=== PATIENT | female | born 1965 | race Hispanic/Latino ===

== ENCOUNTER → 2019-03-24 | Outpatient (CLI) | payer OTHER | END | disposition home or self-care (01) | LOC: RAH 11:43 | PROVIDERS: ATTEND Family Medicine | DX: Z12.31 Encounter for screening mammogram for malignant neoplasm of breast (principal) | CPT/HCPCS: 77067 ==

== ENCOUNTER 2021-12-26 20:11 | Inpatient (IN) | payer OTHER ==
[~2021-12-26] VITALS: Ht 170.2 cm; Wt 170.8 kg
[2021-12-26 22:24] LABS: HEMATOCRIT 34.1 % (36-48); MEAN CORPUSCULAR HEMOGLOBIN 30.6 pg (27.0-33.0); MEAN CORPUSCULAR HGB CONC 33.4 g/dL (32.0-36.0); MEAN CORPUSCULAR VOLUME 91.7 fL (79-99); RED BLOOD CELL COUNT(AUTO) 3.72 MIL/uL (4.00-5.50); RED CELL DISTRIBUTION WIDTH 13.7 % (11.0-15.5); WHITE BLOOD COUNT (AUTO) 20.6 K/uL (4.8-10.8)
[2021-12-26 22:29] LABS: CREATININE 1.8 mg/dL (0.5-1.5); POTASSIUM 3.4 mmol/L (3.5-5.1)
[2021-12-26 22:34] LABS: ALBUMIN 2.4 g/dL (3.5-5.0); BILIRUBIN,TOTAL 0.8 mg/dL (0.2-1.0); TOTAL PROTEIN, SERUM 7.4 g/dL (6.0-8.3)
[2021-12-26] MEDS ORDERED: CLINDAMYCIN IVPB 900MG/50ML 50 ML IV ONE (23:00)
[2021-12-26] MEDS ORDERED: [UNRECOGNIZED DRUG - OTHER] IV ONE (23:00)
[2021-12-26] MEDS ORDERED: KETOROLAC 30MG VIAL (30MG/ML) IV ONE (23:00)
[2021-12-26] MEDS ORDERED: ACETAMINOPHEN 500 MG TABLET PO ONE (23:00)
[2021-12-26 23:04] LABS: BILIRUBIN,URINE Small (NEGATIVE); COLOR,URINE Dark Yellow (YELLOW); GLUCOSE, URINE (UA) Negative (NEGATIVE); KETONES,URINE Trace mg/dL (NEGATIVE); LEUKOCYTE ESTERASE ,URINE Trace (NEGATIVE); NITRATE,URINE Negative (NEGATIVE); OCCULT BLOOD,URINE Negative (NEGATIVE); PROTEIN,URINE POS 1+ mg/dL (NEGATIVE)
[2021-12-26 23:05] LABS: APPEARANCE,URINE CLOUDY (CLEAR)
[2021-12-26 23:13] LABS: BACTERIA,URINE Moderate /HPF (None Seen); RBC,URINE 0-1 /HPF (0-1)
[2021-12-26] MEDS ORDERED: IOHEXOL-350 50ML VIAL IV ONE (23:41)
[2021-12-27] MEDS ORDERED: KCL 20 MEQ ERTAB PO ONE ×2 (01:30→03:34)
[2021-12-27] MEDS ORDERED: VANCOMYCIN 1G/250ML KIT 250 ML IV ONE (01:30)
[2021-12-27] MEDS ORDERED: VANCOMYCIN 1G VIAL IVPB ONE (01:30)
[2021-12-27] MEDS ORDERED: ACETAMINOPHEN 325 MG TAB PO PRN ×2 (02:00)
[2021-12-27] MEDS ORDERED: NITROGLYCERIN 0.4 MG SL TAB SL PRN (02:00)
[2021-12-27] MEDS ORDERED: VANCOMYCIN PROTOCOL PER PHARMACY IV PRN (02:00)
[2021-12-27] MEDS ORDERED: DEXTROSE 50%-WATER 50 ML DISP.SYRIN IV PRN (02:00)
[2021-12-27] MEDS ORDERED: ONDANSETRON 4MG INJ IV PRN (02:00)
[2021-12-27] MEDS ORDERED: GLUCAGON 1MG KIT 1 MG ML IM PRN (02:00)
[2021-12-27] MEDS ORDERED: HYDROCODONE/ACETAMINOPHEN 5/325 MG TAB PO PRN ×2 (02:00)
[2021-12-27] MEDS: 0.9%NACL 1000ML 1,000 ML IV SCH ×3 (02:34→21:03)
[2021-12-27 02:51] LABS: HEMOGLOBIN A1C 7.9 % (4.0-6.0)
[2021-12-27] MEDS: METRONIDAZOLE 500MG/100ML BAG 100 ML IVPB SCH ×5 (03:30→22:25)
[2021-12-27 03:42] LABS: BASOPHILS % (AUTO) 0.9 % (0.0-5.0); HEMATOCRIT 35.5 % (36-48); LYMPHOCYTES % (AUTO) 5.3 % (21.0-51.0); MEAN CORPUSCULAR HEMOGLOBIN 30.4 pg (27.0-33.0); MEAN CORPUSCULAR HGB CONC 33.8 g/dL (32.0-36.0); MEAN CORPUSCULAR VOLUME 89.9 fL (79-99); MONOCYTES % (AUTO) 3.7 % (3.0-13.0); NEUTROPHILS % (AUTO) 87.6 % (40.0-77.0); PLATELET COUNT (AUTO) 248 K/uL (130-400); RED BLOOD CELL COUNT(AUTO) 3.95 MIL/uL (4.00-5.50); RED CELL DISTRIBUTION WIDTH 13.8 % (11.0-15.5); WHITE BLOOD COUNT (AUTO) 19.1 K/uL (4.8-10.8)
[2021-12-27] MEDS: LEVOFLOXACIN 500 MG/D5W 100 ML 100 ML IV SCH (03:43)
[2021-12-27 03:55] LABS: INR 1.16 (0.85-1.15); PROTHROMBIN TIME 12.5 SEC (9.6-11.6)
[2021-12-27 03:56] LABS: PARTIAL THROMBOPLASTIN TIME 31.1 SEC (26.3-35.5)
[2021-12-27 04:13] LABS: ALBUMIN 2.3 g/dL (3.5-5.0); BILIRUBIN,TOTAL 0.8 mg/dL (0.2-1.0); CREATININE 1.7 mg/dL (0.5-1.5); MAGNESIUM 1.7 mg/dL (1.80-2.40); POTASSIUM 3.8 mmol/L (3.5-5.1); THYROID STIMULATING HORMONE 2.8 uIU/mL (0.36-3.74); TOTAL PROTEIN, SERUM 7.3 g/dL (6.0-8.3)
[2021-12-27 05:06] LABS: ERYTHROCYTE SEDIMENTATION RATE 118 MM/HR (0-30)
[2021-12-27] MEDS: INSULIN HUMULIN R 100 UNIT/ML 3ML SQ SCH ×4 (07:30→21:00)
[2021-12-27] MEDS: FAMOTIDINE 20MG TAB PO SCH ×2 (09:00→21:03)
[2021-12-27 09:09] LABS: CREATININE,URINE RANDOM 303 mg/dL (30-135); SODIUM,URINE RANDOM < 14 mmol/l (40-220)
[2021-12-27 10:00] VITALS: BP 107/69
[2021-12-27] MEDS: HYDROMORPHONE 0.5 MG SYG (0.5MG/0.5ML) IVP PRN (10:23)
[2021-12-27] MEDS: HEPARIN 5,000 UNIT VIAL SQ SCH ×3 (10:23→21:24)
[2021-12-27] MEDS ORDERED: HYDROMORPHONE 1 MG INJ IVP PRN (12:30)
[2021-12-27] MEDS ORDERED: KETOROLAC 30MG VIAL (30MG/ML) IM PRN (12:30)
[2021-12-27 16:00] VITALS: BP 105/54
[2021-12-27] MEDS ORDERED: GABA-529 PO (16:44)
[2021-12-27] MEDS ORDERED: LEVO200T5 PO (16:44)
[2021-12-27 19:00] VITALS: BP 90/51
[2021-12-27] MEDS ORDERED: 0.9% NACL 250ML 250 ML ONE (20:57)
[2021-12-27] MEDS: VANCOMYCIN 1G/250ML KIT 250 ML IV SCH (21:03)
[2021-12-28] VITALS (25 sets, daily range): BP systolic 92–127; BP diastolic 52–74
[2021-12-28] MEDS: HYDROMORPHONE 0.5 MG SYG (0.5MG/0.5ML) IVP PRN (00:57)
[2021-12-28] MEDS: LEVOFLOXACIN 500 MG/D5W 100 ML 100 ML IV SCH (03:56)
[2021-12-28] MEDS: LEVOTHYROXINE 125 MCG TABLET PO SCH (03:57)
[2021-12-28] MEDS: INSULIN HUMULIN R 100 UNIT/ML 3ML SQ SCH ×4 (05:59→21:00)
[2021-12-28] MEDS: METRONIDAZOLE 500MG/100ML BAG 100 ML IVPB SCH (06:41)
[2021-12-28 07:00] LABS: BASOPHILS % (AUTO) 0.8 % (0.0-5.0); EOSINOPHILS % (AUTO) 0.7 % (0.0-8.0); HEMATOCRIT 29.7 % (36-48); LYMPHOCYTES % (AUTO) 6.3 % (21.0-51.0); MEAN CORPUSCULAR HEMOGLOBIN 30.5 pg (27.0-33.0); MEAN CORPUSCULAR HGB CONC 34.3 g/dL (32.0-36.0); MEAN CORPUSCULAR VOLUME 88.9 fL (79-99); MONOCYTES % (AUTO) 4.9 % (3.0-13.0); NEUTROPHILS % (AUTO) 81.5 % (40.0-77.0); PLATELET COUNT (AUTO) 283 K/uL (130-400); RED BLOOD CELL COUNT(AUTO) 3.34 MIL/uL (4.00-5.50); WHITE BLOOD COUNT (AUTO) 21.1 K/uL (4.8-10.8)
[2021-12-28 07:31] LABS: CREATININE 1.1 mg/dL (0.5-1.5); POTASSIUM 3.1 mmol/L (3.5-5.1)
[2021-12-28] MEDS ORDERED: POTASSIUM CHLORIDE 10MEQ/100ML 100 ML IV PRN (08:30)
[2021-12-28] MEDS ORDERED: CEFEPIME HCL 2 GM VIAL IVP SCH ×2 (08:30→16:30)
[2021-12-28] MEDS ORDERED: LIDOCAINE HCL-MPF 1% 2ML VIAL IV PRN (08:30)
[2021-12-28] MEDS: HEPARIN 5,000 UNIT VIAL SQ SCH ×3 (08:50→20:07)
[2021-12-28] MEDS: FAMOTIDINE 20MG TAB PO SCH (09:00)
[2021-12-28] MEDS: VANCOMYCIN 1G/250ML KIT 250 ML IV SCH ×2 (09:18→20:04)
[2021-12-28] MEDS ORDERED: CEFAZOLIN SODIUM 1 GM VIAL ONE (09:27)
[2021-12-28] MEDS ORDERED: VANCOMYCIN 1G VIAL ONE (09:41)
[2021-12-28] MEDS ORDERED: ROCURONIUM 10MG/1ML SYR 10 MG/ML ML ONE (09:47)
[2021-12-28] MEDS ORDERED: ONDANSETRON 4MG INJ ONE (09:47)
[2021-12-28] MEDS ORDERED: MIDAZOLAM HCL 1 MG/ML 2ML VIAL ONE (09:47)
[2021-12-28] MEDS ORDERED: FENTANYL CITRATE PF 50 MCG/1 ML 2ML VIAL ONE (09:47)
[2021-12-28] MEDS ORDERED: PROPOFOL 10 MG/ML 20ML VIAL IV ONE ×2 (09:48→10:34)
[2021-12-28] MEDS ORDERED: LIDOCAINE 1%-EPI 1:100,000 20 ML VIAL IJ ONE (10:17)
[2021-12-28] MEDS ORDERED: LIDOCAINE HCL 1% 20 ML VIAL ONE (10:17)
[2021-12-28] MEDS ORDERED: BUPIVACAINE/PF 0.5% 30ML VIAL ONE (10:17)
[2021-12-28] MEDS ORDERED: FENTANYL CITRATE PF 50 MCG/1 ML 5ML AMP IV ONE (10:23)
[2021-12-28] MEDS ORDERED: VANCOMYCIN 1G VIAL IRRIG ONE (10:53)
[2021-12-28 11:00] LABS: ABG BASE EXCESS -8.1 mmol/L (-2.0-3.0); ABG HCO3 15.6 mmol/L (21.0-28.0); ABG OXYGEN SATURATION 99.4 % (95.0-99.0); ABG PCO2 27 mmHg (32-45)
[2021-12-28] MEDS: 0.9%NACL 1000ML 1,000 ML IV SCH ×3 (11:23→19:37)
[2021-12-28] MEDS ORDERED: KETOROLAC 30MG VIAL (30MG/ML) ONE (11:30)
[2021-12-28] MEDS: CEFEPIME HCL 2 GM VIAL IVP SCH (20:04)
[2021-12-28] MEDS ORDERED: POTASSIUM CHLORIDE 10% ELIXIR 20 MEQ/15 ML UDCUP PO PRN (22:30)
[2021-12-29] VITALS: BP 102/48
[2021-12-29] MEDS: KCL 20 MEQ ERTAB PO PRN ×3 (00:11→05:49)
[2021-12-29 04:00] VITALS: BP 98/50
[2021-12-29] MEDS: 0.9%NACL 1000ML 1,000 ML IV SCH ×3 (04:00→23:57)
[2021-12-29 05:17] LABS: BASOPHILS % (AUTO) 0.2 % (0.0-5.0); EOSINOPHILS % (AUTO) 1.8 % (0.0-8.0); HEMATOCRIT 29.1 % (36-48); LYMPHOCYTES % (AUTO) 9.2 % (21.0-51.0); MEAN CORPUSCULAR HEMOGLOBIN 30.2 pg (27.0-33.0); MEAN CORPUSCULAR HGB CONC 33.7 g/dL (32.0-36.0); MEAN CORPUSCULAR VOLUME 89.5 fL (79-99); MONOCYTES % (AUTO) 5.4 % (3.0-13.0); NEUTROPHILS % (AUTO) 68.9 % (40.0-77.0); PLATELET COUNT (AUTO) 283 K/uL (130-400); RED BLOOD CELL COUNT(AUTO) 3.25 MIL/uL (4.00-5.50); RED CELL DISTRIBUTION WIDTH 14.6 % (11.0-15.5); WHITE BLOOD COUNT (AUTO) 18.2 K/uL (4.8-10.8)
[2021-12-29 05:30] LABS: PHOSPHORUS 3.6 mg/dL (2.5-4.9); POTASSIUM 3.4 mmol/L (3.5-5.1)
[2021-12-29] MEDS: CEFEPIME HCL 2 GM VIAL IVP SCH ×2 (05:49→20:12)
[2021-12-29] MEDS: LEVOTHYROXINE 125 MCG TABLET PO SCH (05:49)
[2021-12-29] MEDS: INSULIN HUMULIN R 100 UNIT/ML 3ML SQ SCH ×4 (05:52→20:23)
[2021-12-29 08:00] VITALS: BP 96/58
[2021-12-29] MEDS: HEPARIN 5,000 UNIT VIAL SQ SCH ×3 (09:00→20:14)
[2021-12-29] MEDS: VANCOMYCIN 1G/250ML KIT 250 ML IV SCH ×2 (10:36→20:13)
[2021-12-29] MEDS: FAMOTIDINE 20MG TAB PO SCH (10:37)
[2021-12-29 12:00] VITALS: BP 99/58
[2021-12-29 16:00] VITALS: BP 105/58
[2021-12-29 20:00] VITALS: BP 115/65
[2021-12-30] VITALS: BP 109/64
[2021-12-30 04:00] VITALS: BP 97/64
[2021-12-30] MEDS: LEVOTHYROXINE 125 MCG TABLET PO SCH (06:07)
[2021-12-30] MEDS: CEFEPIME HCL 2 GM VIAL IVP SCH ×2 (06:07→18:30)
[2021-12-30] MEDS: 0.9%NACL 1000ML 1,000 ML IV SCH ×2 (06:07→21:16)
[2021-12-30] MEDS: INSULIN HUMULIN R 100 UNIT/ML 3ML SQ SCH ×4 (06:36→21:00)
[2021-12-30 08:00] VITALS: BP 122/67
[2021-12-30] MEDS: VANCOMYCIN 1G/250ML KIT 250 ML IV SCH ×2 (08:31→21:15)
[2021-12-30] MEDS: FAMOTIDINE 20MG TAB PO SCH (08:32)
[2021-12-30] MEDS: HEPARIN 5,000 UNIT VIAL SQ SCH ×3 (08:33→21:35)
[2021-12-30 12:00] VITALS: BP 105/71
[2021-12-30 16:00] VITALS: BP 94/60
[2021-12-30 20:00] VITALS: BP 132/82
[2021-12-31] VITALS (7 sets, daily range): BP systolic 115–136; BP diastolic 68–82
[2021-12-31] MEDS: 0.9%NACL 1000ML 1,000 ML IV SCH ×2 (05:19→16:00)
[2021-12-31] MEDS: CEFEPIME HCL 2 GM VIAL IVP SCH ×2 (05:43→17:54)
[2021-12-31] MEDS: LEVOTHYROXINE 125 MCG TABLET PO SCH (05:44)
[2021-12-31] MEDS: INSULIN HUMULIN R 100 UNIT/ML 3ML SQ SCH ×4 (07:30→21:00)
[2021-12-31] MEDS: VANCOMYCIN 1G/250ML KIT 250 ML IV SCH ×2 (08:24→20:59)
[2021-12-31] MEDS: FAMOTIDINE 20MG TAB PO SCH (08:24)
[2021-12-31] MEDS: HEPARIN 5,000 UNIT VIAL SQ SCH ×3 (08:29→20:57)
[2021-12-31 08:38] LABS: BASOPHILS % (AUTO) 0.2 % (0.0-5.0); EOSINOPHILS % (AUTO) 1.6 % (0.0-8.0); HEMATOCRIT 32.5 % (36-48); LYMPHOCYTES % (AUTO) 14.7 % (21.0-51.0); MEAN CORPUSCULAR HEMOGLOBIN 30.2 pg (27.0-33.0); MEAN CORPUSCULAR HGB CONC 32.6 g/dL (32.0-36.0); MEAN CORPUSCULAR VOLUME 92.6 fL (79-99); MONOCYTES % (AUTO) 4.6 % (3.0-13.0); NEUTROPHILS % (AUTO) 46.2 % (40.0-77.0); PLATELET COUNT (AUTO) 381 K/uL (130-400); RED BLOOD CELL COUNT(AUTO) 3.51 MIL/uL (4.00-5.50); RED CELL DISTRIBUTION WIDTH 15.9 % (11.0-15.5); WHITE BLOOD COUNT (AUTO) 15.9 K/uL (4.8-10.8)
[2021-12-31 09:14] LABS: BILIRUBIN,TOTAL 0.5 mg/dL (0.2-1.0); CREATININE 0.9 mg/dL (0.5-1.5); POTASSIUM 3.7 mmol/L (3.5-5.1); TOTAL PROTEIN, SERUM 6.8 g/dL (6.0-8.3)
[2021-12-31] MEDS ORDERED: METR-172 PO (18:08)
[2021-12-31] MEDS ORDERED: ACET1TAB25 PO (18:08)
[2021-12-31] MEDS ORDERED: CEFU500T67 PO (18:08)
[2022-01-01] MEDS: 0.9%NACL 1000ML 1,000 ML IV SCH ×3 (02:00→22:00)
[2022-01-01 05:06] LABS: HEMATOCRIT 28.8 % (36-48); MEAN CORPUSCULAR HEMOGLOBIN 30.9 pg (27.0-33.0); MEAN CORPUSCULAR HGB CONC 32.6 g/dL (32.0-36.0); MEAN CORPUSCULAR VOLUME 94.7 fL (79-99); NUCLEATED RED BLOOD CELLS 0.1 % (0.0-0.19); RED BLOOD CELL COUNT(AUTO) 3.04 MIL/uL (4.00-5.50); RED CELL DISTRIBUTION WIDTH 15.9 % (11.0-15.5); WHITE BLOOD COUNT (AUTO) 14.7 K/uL (4.8-10.8)
[2022-01-01 05:11] VITALS: BP 129/79
[2022-01-01 05:16] LABS: CREATININE 0.7 mg/dL (0.5-1.5); POTASSIUM 3.6 mmol/L (3.5-5.1)
[2022-01-01] MEDS: CEFEPIME HCL 2 GM VIAL IVP SCH ×2 (06:10→17:50)
[2022-01-01] MEDS: LEVOTHYROXINE 125 MCG TABLET PO SCH (06:20)
[2022-01-01] MEDS: INSULIN HUMULIN R 100 UNIT/ML 3ML SQ SCH ×4 (06:29→21:00)
[2022-01-01 07:30] VITALS: BP 145/87
[2022-01-01] MEDS ORDERED: 0.9% NACL 250ML 250 ML ONE ×2 (09:03→20:08)
[2022-01-01] MEDS: HEPARIN 5,000 UNIT VIAL SQ SCH ×3 (09:09→20:38)
[2022-01-01] MEDS: FAMOTIDINE 20MG TAB PO SCH (09:11)
[2022-01-01] MEDS: VANCOMYCIN 1G/250ML KIT 250 ML IV SCH ×2 (09:14→20:39)
[2022-01-01 11:30] VITALS: BP 130/78
[2022-01-01 16:00] VITALS: BP 116/77
[2022-01-01 19:57] VITALS: BP 120/81
[2022-01-01] MEDS: KCL 20 MEQ ERTAB PO PRN (20:50)
[2022-01-01 23:28] VITALS: BP 121/71
[2022-01-02] VITALS (22 sets, daily range): BP systolic 72–138; BP diastolic 36–87
[2022-01-02] MEDS: LEVOTHYROXINE 125 MCG TABLET PO SCH (05:12)
[2022-01-02] MEDS: CEFEPIME HCL 2 GM VIAL IVP SCH (05:12)
[2022-01-02 05:24] LABS: BASOPHILS % (AUTO) 0.9 % (0.0-5.0); EOSINOPHILS % (AUTO) 1.9 % (0.0-8.0); HEMATOCRIT 28.4 % (36-48); LYMPHOCYTES % (AUTO) 17.8 % (21.0-51.0); MEAN CORPUSCULAR HEMOGLOBIN 30.3 pg (27.0-33.0); MEAN CORPUSCULAR HGB CONC 32.7 g/dL (32.0-36.0); MEAN CORPUSCULAR VOLUME 92.5 fL (79-99); MONOCYTES % (AUTO) 6.4 % (3.0-13.0); NEUTROPHILS % (AUTO) 46.2 % (40.0-77.0); PLATELET COUNT (AUTO) 423 K/uL (130-400); RED BLOOD CELL COUNT(AUTO) 3.07 MIL/uL (4.00-5.50); RED CELL DISTRIBUTION WIDTH 15.6 % (11.0-15.5); WHITE BLOOD COUNT (AUTO) 13.1 K/uL (4.8-10.8)
[2022-01-02 05:47] LABS: % IRON SATURATION 52.7 % (22-44)
[2022-01-02 06:15] LABS: CARBON DIOXIDE 24 mmol/L (21-32); CHLORIDE 109 mmol/L (101-111); CREATININE 0.7 mg/dL (0.5-1.5); GLOMERULAR FILTR. RATE CALC 91 mL/min (>60); GLUCOSE,RANDOM 129 mg/dL (70-105); POTASSIUM 3.5 mmol/L (3.5-5.1); SODIUM SERUM 142 mmol/L (136-145); THYROID STIMULATING HORMONE 10.11 uIU/mL (0.36-3.74); UREA NITROGEN, BLOOD 9 mg/dL (7-18)
[2022-01-02 06:27] LABS: ERYTHROCYTE SEDIMENTATION RATE 75 MM/HR (0-30)
[2022-01-02] MEDS: INSULIN HUMULIN R 100 UNIT/ML 3ML SQ SCH ×3 (06:34→21:00)
[2022-01-02] MEDS: FAMOTIDINE 20MG TAB PO SCH (09:00)
[2022-01-02] MEDS: ENOXAPARIN SODIUM 40 MG/0.4 ML SYRINGE SQ SCH (09:00)
[2022-01-02] MEDS ORDERED: 0.9% NACL 250ML 250 ML ONE (09:12)
[2022-01-02] MEDS: VANCOMYCIN 1G/250ML KIT 250 ML IV SCH (09:16)
[2022-01-02] MEDS: METRONIDAZOLE 500 MG TABLET PO SCH ×2 (14:26→21:52)
[2022-01-02] MEDS: CEFUROXIME AXETIL 250 MG TABLET PO SCH (14:26)
[2022-01-02] MEDS ORDERED: SUCCINYLCHOLINE CHLORIDE 20 MG/ML 10 ML VIAL ONE (17:09)
[2022-01-02] MEDS ORDERED: MIDAZOLAM HCL 1 MG/ML 2ML VIAL ONE (17:09)
[2022-01-02] MEDS ORDERED: ROCURONIUM 10MG/1ML SYR 10 MG/ML ML ONE (17:09)
[2022-01-02] MEDS ORDERED: FENTANYL CITRATE PF 50 MCG/1 ML 2ML VIAL ONE ×2 (17:09→17:37)
[2022-01-02] MEDS ORDERED: PROPOFOL 10 MG/ML 20ML VIAL IV ONE ×2 (17:09→17:37)
[2022-01-02] MEDS ORDERED: LIDOCAINE PF 100MG/5ML (2%) SYRINGE 5ML ONE (17:09)
[2022-01-02] MEDS ORDERED: MEPERIDINE-PF 25 MG/ML SYG ONE (18:39)
[2022-01-03] VITALS: BP 110/70
[2022-01-03 04:00] VITALS: BP 122/72
[2022-01-03 04:28] LABS: BASOPHILS % (AUTO) 0.1 % (0.0-5.0); EOSINOPHILS % (AUTO) 1.7 % (0.0-8.0); HEMATOCRIT 27.3 % (36-48); LYMPHOCYTES % (AUTO) 15.4 % (21.0-51.0); MEAN CORPUSCULAR HEMOGLOBIN 30.9 pg (27.0-33.0); MEAN CORPUSCULAR VOLUME 93.8 fL (79-99); MONOCYTES % (AUTO) 6.2 % (3.0-13.0); NEUTROPHILS % (AUTO) 60.5 % (40.0-77.0); PLATELET COUNT (AUTO) 399 K/uL (130-400); RED BLOOD CELL COUNT(AUTO) 2.91 MIL/uL (4.00-5.50); RED CELL DISTRIBUTION WIDTH 15.2 % (11.0-15.5); WHITE BLOOD COUNT (AUTO) 11.8 K/uL (4.8-10.8)
[2022-01-03 04:43] LABS: CREATININE 0.7 mg/dL (0.5-1.5); POTASSIUM 3.4 mmol/L (3.5-5.1)
[2022-01-03] MEDS: METRONIDAZOLE 500 MG TABLET PO SCH ×2 (06:01→14:24)
[2022-01-03] MEDS: CEFUROXIME AXETIL 250 MG TABLET PO SCH ×2 (06:02→14:24)
[2022-01-03] MEDS: LEVOTHYROXINE 125 MCG TABLET PO SCH (06:02)
[2022-01-03] MEDS: INSULIN HUMULIN R 100 UNIT/ML 3ML SQ SCH ×4 (06:02→21:00)
[2022-01-03 08:00] VITALS: BP 131/67
[2022-01-03] MEDS: FAMOTIDINE 20MG TAB PO SCH (08:43)
[2022-01-03] MEDS: ENOXAPARIN SODIUM 40 MG/0.4 ML SYRINGE SQ SCH (08:44)
[2022-01-03 12:00] VITALS: BP 148/75
[2022-01-03] MEDS: HYDROMORPHONE 1 MG INJ IVP PRN (14:25)
[2022-01-03 16:00] VITALS: BP 119/72
[2022-01-03 20:00] VITALS: BP 123/73
[2022-01-04] VITALS: BP 124/75
[2022-01-04] MEDS: METRONIDAZOLE 500 MG TABLET PO SCH ×2 (00:44→05:51)
[2022-01-04 04:00] VITALS: BP 119/67
[2022-01-04 05:19] LABS: BASOPHILS % (AUTO) 0.4 % (0.0-5.0); EOSINOPHILS % (AUTO) 2.1 % (0.0-8.0); HEMATOCRIT 26.5 % (36-48); LYMPHOCYTES % (AUTO) 18.8 % (21.0-51.0); MEAN CORPUSCULAR HEMOGLOBIN 30.3 pg (27.0-33.0); MEAN CORPUSCULAR HGB CONC 32.8 g/dL (32.0-36.0); MEAN CORPUSCULAR VOLUME 92.3 fL (79-99); MONOCYTES % (AUTO) 5.5 % (3.0-13.0); NEUTROPHILS % (AUTO) 61.8 % (40.0-77.0); PLATELET COUNT (AUTO) 394 K/uL (130-400); RED BLOOD CELL COUNT(AUTO) 2.87 MIL/uL (4.00-5.50); WHITE BLOOD COUNT (AUTO) 11.2 K/uL (4.8-10.8)
[2022-01-04 05:50] LABS: CREATININE 0.8 mg/dL (0.5-1.5); POTASSIUM 3.1 mmol/L (3.5-5.1)
[2022-01-04] MEDS: CEFUROXIME AXETIL 250 MG TABLET PO SCH (05:51)
[2022-01-04] MEDS: LEVOTHYROXINE 125 MCG TABLET PO SCH (05:53)
[2022-01-04] MEDS: INSULIN HUMULIN R 100 UNIT/ML 3ML SQ SCH ×3 (05:53→16:30)
[2022-01-04 07:35] VITALS: BP 123/74
[2022-01-04] MEDS: FAMOTIDINE 20MG TAB PO SCH (08:50)
[2022-01-04] MEDS: ENOXAPARIN SODIUM 40 MG/0.4 ML SYRINGE SQ SCH (08:51)
[2022-01-04] MEDS ORDERED: EPOETIN ALFA-EPBX (NON-ESRD) 10,000 UNIT/ML VIAL SQ SCH (09:30)
[2022-01-04] MEDS ORDERED: COMPOUND IV MISC 1 EACH IVSOLN MISC PRN (09:30)
[2022-01-04] MEDS ORDERED: IRON SUCROSE COMPLEX 400 MG in 0.9%NACL 50ML 50 ML IV SCH (09:30)
[2022-01-04] MEDS ORDERED: CEFTAZIDIME PENTAHYDRATE 1 GM/VIAL IVP SCH (10:00)
[2022-01-04 11:36] LABS: INR 1.06 (0.85-1.15); PROTHROMBIN TIME 11.5 SEC (9.6-11.6)
[2022-01-04 11:40] VITALS: BP 116/69
[2022-01-04] MEDS: HYDROMORPHONE 1 MG INJ IVP PRN (13:23)
[2022-01-04] MEDS ORDERED: METRONIDAZOLE 500MG/100ML BAG 100 ML IVPB SCH (14:00)
[2022-01-04 15:40] VITALS: BP 119/65
== END 2022-01-04 17:25 | DRG 584 ==
LOC: EDH 20:11 → EDHIP 12-27 01:32 → 3BH 12-27 10:00
PROVIDERS: ADMIT Internal Medicine; ATTEND Internal Medicine
PROC: 0X940ZZ Drainage of Right Axilla, Open Approach (ICD-10-PCS; 2021-12-28)
PROC: 0H9T0ZZ Drainage of Right Breast, Open Approach (ICD-10-PCS; principal; 2021-12-28 10:35)
PROC: 0H9T0ZZ Drainage of Right Breast, Open Approach (ICD-10-PCS; 2022-01-02)
DX: L02.213 Cutaneous abscess of chest wall (principal); L02.411 Cutaneous abscess of right axilla; E87.1 Hypo-osmolality and hyponatremia; Z68.43 Body mass index [BMI] 50.0-59.9, adult; N17.9 Acute kidney failure, unspecified; L03.111 Cellulitis of right axilla; L03.313 Cellulitis of chest wall; E87.6 Hypokalemia; E66.01 Morbid (severe) obesity due to excess calories; E11.65 Type 2 diabetes mellitus with hyperglycemia; N61.1 Abscess of the breast and nipple; E78.5 Hyperlipidemia, unspecified; M47.815 Spondylosis without myelopathy or radiculopathy, thoracolumbar region; Z20.822 Contact with and (suspected) exposure to COVID-19; Z88.0 Allergy status to penicillin; Z90.49 Acquired absence of other specified parts of digestive tract; Z90.710 Acquired absence of both cervix and uterus; Z83.3 Family history of diabetes mellitus; I25.10 Atherosclerotic heart disease of native coronary artery without angina pectoris; E89.0 Postprocedural hypothyroidism; D63.8 Anemia in other chronic diseases classified elsewhere; I10 Essential (primary) hypertension
CPT/HCPCS: 36415; 36600; 71260; 76604; 80048; 80053; 80202; 81001; 81025; 82010; 82435; 82550; 82570; 82607; 82728; 82746; 82803; 82947; 82948; 83036; 83540; 83550; 83605; 83735; 83874; 83935; 84100; 84132; 84145; 84295; 84300; 84443; 84484; 85018; 85025; 85027; 85045; 85610; 85651; 85730; 86140; 87040; 87070; 87076; 87088; 87205; 87635; 93005; A6266; C1894; G0378; J0330; J0690; J0692; J1170; J1644; J1650; J1756; J1885; J1956; J2001; J2175; J2250; J2405; J2704; J3010; J3370; J3490; J7030; J7050; Q9967

== ENCOUNTER → 2022-01-28 | Outpatient (CLI) | payer OTHER ==
[~2022-01-28] MED LIST: ACET-2079 PO; CEFU500T67 PO; GABA-529 PO; LEVO200T5 PO; LIDOCAINE HCL 4% LTA SOL 4 ML VIAL TP ONE; METR-172 PO
== END ==
LOC: WHH 08:54
PROVIDERS: ATTEND Family Medicine
DX: T81.89XA Other complications of procedures, not elsewhere classified, initial encounter (principal); S21.90XA Unspecified open wound of unspecified part of thorax, initial encounter; E11.628 Type 2 diabetes mellitus with other skin complications; E11.65 Type 2 diabetes mellitus with hyperglycemia; I10 Essential (primary) hypertension; E78.5 Hyperlipidemia, unspecified; E03.9 Hypothyroidism, unspecified; I25.10 Atherosclerotic heart disease of native coronary artery without angina pectoris; E66.01 Morbid (severe) obesity due to excess calories; M47.815 Spondylosis without myelopathy or radiculopathy, thoracolumbar region; Z68.43 Body mass index [BMI] 50.0-59.9, adult; Z79.899 Other long term (current) drug therapy; Z88.0 Allergy status to penicillin; Z90.49 Acquired absence of other specified parts of digestive tract; Z90.710 Acquired absence of both cervix and uterus; Z98.890 Other specified postprocedural states; X58.XXXA Exposure to other specified factors, initial encounter; Y83.8 Other surgical procedures as the cause of abnormal reaction of the patient, or of later complication, without mention of misadventure at the time of the procedure; Y92.238 Other place in hospital as the place of occurrence of the external cause; Y93.89 Activity, other specified; Y92.89 Other specified places as the place of occurrence of the external cause; Y99.8 Other external cause status
CPT/HCPCS: 11042; 11045; A4450; A6248

== ENCOUNTER → 2022-02-04 | Outpatient (CLI) | payer OTHER ==
[~2022-02-04] MED LIST changes: +SILVER NITRATE APPLICATOR 1 SWAB TP ONE
== END | disposition home or self-care (01) ==
LOC: WHH 10:03
PROVIDERS: ATTEND Family Medicine
DX: T81.89XD Other complications of procedures, not elsewhere classified, subsequent encounter (principal); S21.90XD Unspecified open wound of unspecified part of thorax, subsequent encounter; E11.628 Type 2 diabetes mellitus with other skin complications; E11.65 Type 2 diabetes mellitus with hyperglycemia; I10 Essential (primary) hypertension; E78.5 Hyperlipidemia, unspecified; E03.9 Hypothyroidism, unspecified; I25.10 Atherosclerotic heart disease of native coronary artery without angina pectoris; E66.01 Morbid (severe) obesity due to excess calories; M47.815 Spondylosis without myelopathy or radiculopathy, thoracolumbar region; Z68.43 Body mass index [BMI] 50.0-59.9, adult; Z79.899 Other long term (current) drug therapy; Z88.0 Allergy status to penicillin; Z90.49 Acquired absence of other specified parts of digestive tract; Z90.710 Acquired absence of both cervix and uterus; Z98.890 Other specified postprocedural states; X58.XXXD Exposure to other specified factors, subsequent encounter; Y83.8 Other surgical procedures as the cause of abnormal reaction of the patient, or of later complication, without mention of misadventure at the time of the procedure
CPT/HCPCS: 11042; A6248

== ENCOUNTER → 2022-02-11 | Outpatient (CLI) | payer OTHER ==
[~2022-02-11] MED LIST changes: -SILVER NITRATE APPLICATOR 1 SWAB TP ONE
== END | disposition home or self-care (01) ==
LOC: WHH 09:59
PROVIDERS: ATTEND Family Medicine
DX: T81.89XD Other complications of procedures, not elsewhere classified, subsequent encounter (principal); S21.90XD Unspecified open wound of unspecified part of thorax, subsequent encounter; E11.628 Type 2 diabetes mellitus with other skin complications; E11.65 Type 2 diabetes mellitus with hyperglycemia; I10 Essential (primary) hypertension; E78.5 Hyperlipidemia, unspecified; E03.9 Hypothyroidism, unspecified; I25.10 Atherosclerotic heart disease of native coronary artery without angina pectoris; E66.01 Morbid (severe) obesity due to excess calories; M47.815 Spondylosis without myelopathy or radiculopathy, thoracolumbar region; Z68.43 Body mass index [BMI] 50.0-59.9, adult; Z79.899 Other long term (current) drug therapy; Z88.0 Allergy status to penicillin; Z90.49 Acquired absence of other specified parts of digestive tract; Z90.710 Acquired absence of both cervix and uterus; Z98.890 Other specified postprocedural states; X58.XXXD Exposure to other specified factors, subsequent encounter; Y83.8 Other surgical procedures as the cause of abnormal reaction of the patient, or of later complication, without mention of misadventure at the time of the procedure
CPT/HCPCS: 11042

== ENCOUNTER → 2022-02-18 | Outpatient (CLI) | payer OTHER | END | disposition home or self-care (01) | LOC: WHH 09:53 | PROVIDERS: ATTEND Family Medicine | DX: T81.89XD Other complications of procedures, not elsewhere classified, subsequent encounter (principal); S21.90XD Unspecified open wound of unspecified part of thorax, subsequent encounter; E11.628 Type 2 diabetes mellitus with other skin complications; I10 Essential (primary) hypertension; E78.5 Hyperlipidemia, unspecified; E03.9 Hypothyroidism, unspecified; I25.10 Atherosclerotic heart disease of native coronary artery without angina pectoris; E66.01 Morbid (severe) obesity due to excess calories; M47.815 Spondylosis without myelopathy or radiculopathy, thoracolumbar region; Z68.43 Body mass index [BMI] 50.0-59.9, adult; Z79.899 Other long term (current) drug therapy; Z98.890 Other specified postprocedural states; X58.XXXD Exposure to other specified factors, subsequent encounter; Y83.8 Other surgical procedures as the cause of abnormal reaction of the patient, or of later complication, without mention of misadventure at the time of the procedure | CPT/HCPCS: 99214 ==

== ENCOUNTER 2022-02-25 10:24 | Outpatient (CLI) | payer OTHER ==
[~2022-02-25 10:24] MED LIST changes: -LIDOCAINE HCL 4% LTA SOL 4 ML VIAL TP ONE
== END 2022-02-25 14:01 | disposition home or self-care (01) ==
LOC: WHH 10:24
PROVIDERS: ATTEND Family Medicine
DX: T81.89XD Other complications of procedures, not elsewhere classified, subsequent encounter (principal); S21.90XD Unspecified open wound of unspecified part of thorax, subsequent encounter; E11.628 Type 2 diabetes mellitus with other skin complications; I10 Essential (primary) hypertension; E78.5 Hyperlipidemia, unspecified; E03.9 Hypothyroidism, unspecified; I25.10 Atherosclerotic heart disease of native coronary artery without angina pectoris; E66.01 Morbid (severe) obesity due to excess calories; M47.815 Spondylosis without myelopathy or radiculopathy, thoracolumbar region; Z68.43 Body mass index [BMI] 50.0-59.9, adult; Z79.899 Other long term (current) drug therapy; Z98.890 Other specified postprocedural states; X58.XXXD Exposure to other specified factors, subsequent encounter; Y83.8 Other surgical procedures as the cause of abnormal reaction of the patient, or of later complication, without mention of misadventure at the time of the procedure
CPT/HCPCS: 99214

== ENCOUNTER 2022-02-27 12:23 | Inpatient (IN) | payer OTHER ==
[~2022-02-27] VITALS: Ht 170.2 cm; Wt 158.3 kg
[2022-02-27 12:55] LABS: ABG BASE EXCESS -7.2 mmol/L (-2.0-3.0); ABG OXYGEN SATURATION 91.4 % (95.0-99.0); ABG PCO2 27 mmHg (32-45)
[2022-02-27 13:11] LABS: HEMATOCRIT 39.5 % (36-48); MEAN CORPUSCULAR HEMOGLOBIN 30.8 pg (27.0-33.0); MEAN CORPUSCULAR HGB CONC 34.7 g/dL (32.0-36.0); MEAN CORPUSCULAR VOLUME 88.8 fL (79-99); RED BLOOD CELL COUNT(AUTO) 4.45 MIL/uL (4.00-5.50); RED CELL DISTRIBUTION WIDTH 14.6 % (11.0-15.5); WHITE BLOOD COUNT (AUTO) 27.2 K/uL (4.8-10.8)
[2022-02-27 13:36] LABS: CREATININE 1.9 mg/dL (0.5-1.5); POTASSIUM 3.8 mmol/L (3.5-5.1)
[2022-02-27] MEDS: LEVOFLOXACIN 500 MG/D5W 100 ML 100 ML IV SCH ×2 (14:10→14:11)
[2022-02-27 14:20] LABS: ALBUMIN 2.2 g/dL (3.5-5.0); BILIRUBIN,TOTAL 0.9 mg/dL (0.2-1.0); TOTAL PROTEIN, SERUM 7.3 g/dL (6.0-8.3)
[2022-02-27] MEDS ORDERED: 0.9%NACL 1000ML 1,000 ML IV ONE (15:23)
[2022-02-27] MEDS ORDERED: ENOXAPARIN SODIUM 1 MG/KG SQ SCH (15:30)
[2022-02-27] MEDS ORDERED: ASPIRIN 81MG CHEW TAB PO ONE (15:30)
[2022-02-27] MEDS ORDERED: METRONIDAZOLE 500MG/100ML BAG 100 ML IVPB STA (15:38)
[2022-02-27] MEDS ORDERED: ENOXAPARIN SODIUM 120 MG/0.8ML SQ SCH (17:00)
[2022-02-27 18:41] LABS: APPEARANCE,URINE CLOUDY (CLEAR); BILIRUBIN,URINE MODERATE (NEGATIVE); COLOR,URINE YELLOW (YELLOW); GLUCOSE, URINE (UA) NEGATIVE (NEGATIVE); KETONES,URINE NEGATIVE (NEGATIVE); LEUKOCYTE ESTERASE ,URINE TRACE (NEGATIVE); NITRATE,URINE NEGATIVE (NEGATIVE); OCCULT BLOOD,URINE NEGATIVE (NEGATIVE); PROTEIN,URINE 30 mg/dL (NEGATIVE)
[2022-02-27 19:33] LABS: BACTERIA,URINE Moderate /HPF (None Seen)
[2022-02-27 19:34] LABS: RBC,URINE 0-1 /HPF (0-1)
[2022-02-27] MEDS ORDERED: HYDROMORPHONE 0.5 MG SYG (0.5MG/0.5ML) IVP PRN (20:00)
[2022-02-27] MEDS: 0.9%NACL 1000ML 1,000 ML IV SCH (20:00)
[2022-02-27] MEDS ORDERED: ONDANSETRON 4MG INJ IV PRN (20:00)
[2022-02-27 20:09] LABS: BASOPHILS % (AUTO) 0.4 % (0.0-5.0); EOSINOPHILS % (AUTO) 0.2 % (0.0-8.0); HEMATOCRIT 36.5 % (36-48); LYMPHOCYTES % (AUTO) 5.1 % (21.0-51.0); MEAN CORPUSCULAR HEMOGLOBIN 30.2 pg (27.0-33.0); MONOCYTES % (AUTO) 4.5 % (3.0-13.0); NEUTROPHILS % (AUTO) 86.3 % (40.0-77.0); PLATELET COUNT (AUTO) 253 K/uL (130-400); RED CELL DISTRIBUTION WIDTH 14.6 % (11.0-15.5); WHITE BLOOD COUNT (AUTO) 22.6 K/uL (4.8-10.8)
[2022-02-27 20:18] LABS: CREATININE 1.8 mg/dL (0.5-1.5); POTASSIUM 3.6 mmol/L (3.5-5.1)
[2022-02-27 20:24] LABS: CHOLESTEROL 199 mg/dL (<200); HDL CHOLESTEROL 11 mg/dL (35-85); LDL DIRECT 115 mg/dL (0-99); TRIGLYCERIDES 294 mg/dL (30-200)
[2022-02-27 20:27] LABS: BILIRUBIN,TOTAL 0.6 mg/dL (0.2-1.0); TOTAL PROTEIN, SERUM 6.6 g/dL (6.0-8.3)
[2022-02-27 20:32] LABS: MAGNESIUM 1.7 mg/dL (1.80-2.40); PHOSPHORUS 3.6 mg/dL (2.5-4.9)
[2022-02-27] MEDS ORDERED: LACTATED RINGERS 1000ML 1,000 ML IV ONE (21:00)
[2022-02-27] MEDS: HYDROMORPHONE 0.5 MG SYG (0.5MG/0.5ML) IVP PRN (21:25)
[2022-02-27 22:05] LABS: HEMOGLOBIN A1C 7.1 % (4.0-6.0)
[2022-02-28] VITALS (9 sets, daily range): BP systolic 104–149; BP diastolic 60–69
[2022-02-28] MEDS: METRONIDAZOLE 500MG/100ML BAG 100 ML IVPB SCH ×4 (00:14→22:29)
[2022-02-28 04:47] LABS: BASOPHILS % (AUTO) 0.5 % (0.0-5.0); EOSINOPHILS % (AUTO) 0.3 % (0.0-8.0); HEMATOCRIT 36.3 % (36-48); LYMPHOCYTES % (AUTO) 6.2 % (21.0-51.0); MEAN CORPUSCULAR HEMOGLOBIN 30.7 pg (27.0-33.0); MEAN CORPUSCULAR HGB CONC 34.7 g/dL (32.0-36.0); MEAN CORPUSCULAR VOLUME 88.3 fL (79-99); MONOCYTES % (AUTO) 4.6 % (3.0-13.0); NEUTROPHILS % (AUTO) 85.3 % (40.0-77.0); PLATELET COUNT (AUTO) 241 K/uL (130-400); RED BLOOD CELL COUNT(AUTO) 4.11 MIL/uL (4.00-5.50); RED CELL DISTRIBUTION WIDTH 14.6 % (11.0-15.5)
[2022-02-28] MEDS: 0.9%NACL 1000ML 1,000 ML IV SCH ×4 (04:54→22:30)
[2022-02-28] MEDS: HYDROMORPHONE 0.5 MG SYG (0.5MG/0.5ML) IVP PRN ×2 (04:55→18:13)
[2022-02-28 05:15] LABS: ALBUMIN 1.9 g/dL (3.5-5.0); BILIRUBIN,TOTAL 0.6 mg/dL (0.2-1.0); CREATININE 1.5 mg/dL (0.5-1.5); POTASSIUM 3.8 mmol/L (3.5-5.1); TOTAL PROTEIN, SERUM 6.3 g/dL (6.0-8.3)
[2022-02-28 05:21] LABS: CRP QUANTITATIVE 300.9 mg/L (0.00-9.0)
[2022-02-28 05:59] LABS: ERYTHROCYTE SEDIMENTATION RATE 43 MM/HR (0-30)
[2022-02-28] MEDS: INSULIN HUMULIN R 100 UNIT/ML 3ML SQ SCH ×7 (06:07→23:33)
[2022-02-28] MEDS: FAMOTIDINE 20MG VIAL IV SCH (08:13)
[2022-02-28] MEDS: ENOXAPARIN SODIUM 40 MG/0.4 ML SYRINGE SQ SCH (08:27)
[2022-02-28] MEDS ORDERED: LEVOFLOXACIN 750 MG/D5W 150 ML 150 ML IV SCH (09:00)
[2022-02-28] MEDS ORDERED: FENTANYL CITRATE PF 50 MCG/1 ML 2ML VIAL ONE (13:54)
[2022-02-28] MEDS ORDERED: MIDAZOLAM HCL 1 MG/ML 2ML VIAL ONE (13:54)
[2022-03-01] MEDS: HYDROMORPHONE 0.5 MG SYG (0.5MG/0.5ML) IVP PRN ×3 (01:49→20:23)
[2022-03-01 03:30] VITALS: BP 119/66
[2022-03-01 03:50] LABS: BASOPHILS % (AUTO) 0.5 % (0.0-5.0); EOSINOPHILS % (AUTO) 0.8 % (0.0-8.0); HEMATOCRIT 34.1 % (36-48); LYMPHOCYTES % (AUTO) 7.9 % (21.0-51.0); MEAN CORPUSCULAR HEMOGLOBIN 30.3 pg (27.0-33.0); MONOCYTES % (AUTO) 4.9 % (3.0-13.0); NEUTROPHILS % (AUTO) 80.6 % (40.0-77.0); PLATELET COUNT (AUTO) 283 K/uL (130-400); RED BLOOD CELL COUNT(AUTO) 3.83 MIL/uL (4.00-5.50); WHITE BLOOD COUNT (AUTO) 18.5 K/uL (4.8-10.8)
[2022-03-01] MEDS: INSULIN HUMULIN R 100 UNIT/ML 3ML SQ SCH ×6 (04:00→23:50)
[2022-03-01 04:08] LABS: ALBUMIN 1.6 g/dL (3.5-5.0); BILIRUBIN,TOTAL 0.6 mg/dL (0.2-1.0); CREATININE 1.2 mg/dL (0.5-1.5); POTASSIUM 4.6 mmol/L (3.5-5.1); TOTAL PROTEIN, SERUM 5.6 g/dL (6.0-8.3)
[2022-03-01] MEDS: 0.9%NACL 1000ML 1,000 ML IV SCH ×4 (05:02→23:50)
[2022-03-01] MEDS: METRONIDAZOLE 500MG/100ML BAG 100 ML IVPB SCH ×3 (05:02→21:41)
[2022-03-01 07:47] VITALS: BP 96/57
[2022-03-01] MEDS: ENOXAPARIN SODIUM 40 MG/0.4 ML SYRINGE SQ SCH (08:34)
[2022-03-01] MEDS: FLUCONAZOLE 200 MG/NS 100 ML 100 ML IV SCH (08:35)
[2022-03-01] MEDS: FAMOTIDINE 20MG VIAL IV SCH (08:35)
[2022-03-01 11:31] VITALS: BP 117/54
[2022-03-01] MEDS: LEVOFLOXACIN 500 MG/D5W 100 ML 100 ML IV SCH (16:21)
[2022-03-01 16:48] VITALS: BP 103/62
[2022-03-01 19:11] VITALS: BP 121/80
[2022-03-01 23:30] VITALS: BP 126/71
[2022-03-02 03:49] VITALS: BP 119/63
[2022-03-02] MEDS: INSULIN HUMULIN R 100 UNIT/ML 3ML SQ SCH ×6 (04:00→23:55)
[2022-03-02 04:05] LABS: BASOPHILS % (AUTO) 0.8 % (0.0-5.0); EOSINOPHILS % (AUTO) 0.3 % (0.0-8.0); HEMATOCRIT 35.2 % (36-48); LYMPHOCYTES % (AUTO) 7.8 % (21.0-51.0); MEAN CORPUSCULAR HEMOGLOBIN 30.2 pg (27.0-33.0); MEAN CORPUSCULAR HGB CONC 34.1 g/dL (32.0-36.0); MEAN CORPUSCULAR VOLUME 88.4 fL (79-99); MONOCYTES % (AUTO) 4.5 % (3.0-13.0); NEUTROPHILS % (AUTO) 77.6 % (40.0-77.0); PLATELET COUNT (AUTO) 320 K/uL (130-400); RED BLOOD CELL COUNT(AUTO) 3.98 MIL/uL (4.00-5.50); RED CELL DISTRIBUTION WIDTH 15.3 % (11.0-15.5); WHITE BLOOD COUNT (AUTO) 16.1 K/uL (4.8-10.8)
[2022-03-02 04:55] LABS: ALBUMIN 1.9 g/dL (3.5-5.0); BILIRUBIN,TOTAL 0.6 mg/dL (0.2-1.0); CREATININE 1.1 mg/dL (0.5-1.5); POTASSIUM 3.5 mmol/L (3.5-5.1)
[2022-03-02] MEDS: METRONIDAZOLE 500MG/100ML BAG 100 ML IVPB SCH ×3 (05:15→22:13)
[2022-03-02 05:16] LABS: ERYTHROCYTE SEDIMENTATION RATE 35 MM/HR (0-30)
[2022-03-02 05:28] LABS: CRP QUANTITATIVE 221.2 mg/L (0.00-9.0)
[2022-03-02 07:48] VITALS: BP 121/66
[2022-03-02] MEDS: FLUCONAZOLE 200 MG/NS 100 ML 100 ML IV SCH (08:55)
[2022-03-02] MEDS: FAMOTIDINE 20MG VIAL IV SCH (08:56)
[2022-03-02] MEDS: APIXABAN 5 MG TABLET PO SCH ×2 (08:56→19:44)
[2022-03-02] MEDS: 0.9%NACL 1000ML 1,000 ML IV SCH ×3 (08:56→19:45)
[2022-03-02 11:20] VITALS: BP 112/59
[2022-03-02] MEDS ORDERED: LEVOTHYROXINE 150 MCG TABLET PO SCH (11:30)
[2022-03-02] MEDS ORDERED: LEVOTHYROXINE 100 MCG TABLET PO SCH (12:00)
[2022-03-02] MEDS: LEVOFLOXACIN 500 MG/D5W 100 ML 100 ML IV SCH (13:52)
[2022-03-02 17:09] VITALS: BP 136/60
[2022-03-02 19:15] VITALS: BP 128/77
[2022-03-02 23:42] VITALS: BP 133/76
[2022-03-03] MEDS: 0.9%NACL 1000ML 1,000 ML IV SCH ×2 (03:04→08:43)
[2022-03-03 03:37] VITALS: BP 111/70
[2022-03-03] MEDS: INSULIN HUMULIN R 100 UNIT/ML 3ML SQ SCH ×5 (03:53→20:00)
[2022-03-03] MEDS: METRONIDAZOLE 500MG/100ML BAG 100 ML IVPB SCH ×3 (05:09→21:08)
[2022-03-03 06:34] VITALS: BP 112/77
[2022-03-03] MEDS: FAMOTIDINE 20MG VIAL IV SCH (08:41)
[2022-03-03] MEDS: FLUCONAZOLE 200 MG/NS 100 ML 100 ML IV SCH (08:42)
[2022-03-03] MEDS: LEVOTHYROXINE 125 MCG TABLET PO SCH (08:42)
[2022-03-03] MEDS: APIXABAN 5 MG TABLET PO SCH ×2 (08:43→21:09)
[2022-03-03 11:53] VITALS: BP 116/71
[2022-03-03] MEDS: LEVOFLOXACIN 500 MG/D5W 100 ML 100 ML IV SCH (14:48)
[2022-03-03 16:00] VITALS: BP 110/70
[2022-03-03] MEDS ORDERED: FUROSEMIDE 20MG VIAL IV SCH (18:30)
[2022-03-03 20:07] VITALS: BP 115/76
[2022-03-03] MEDS: FUROSEMIDE 20MG VIAL IV SCH (21:08)
[2022-03-03] MEDS ORDERED: DIATR MEGLU/DIATRIZOATE SODIUM 30 ML BOTTLE ONE (22:56)
[2022-03-03 23:25] VITALS: BP 104/76
[2022-03-04] MEDS: FUROSEMIDE 20MG VIAL IV SCH ×3 (03:30→19:46)
[2022-03-04 03:40] VITALS: BP 114/68
[2022-03-04] MEDS: INSULIN HUMULIN R 100 UNIT/ML 3ML SQ SCH ×6 (04:00→20:00)
[2022-03-04 05:06] LABS: BASOPHILS % (AUTO) 0.2 % (0.0-5.0); EOSINOPHILS % (AUTO) 1.8 % (0.0-8.0); HEMATOCRIT 35.7 % (36-48); MEAN CORPUSCULAR HEMOGLOBIN 30.3 pg (27.0-33.0); MEAN CORPUSCULAR HGB CONC 34.5 g/dL (32.0-36.0); MEAN CORPUSCULAR VOLUME 87.9 fL (79-99); PLATELET COUNT (AUTO) 408 K/uL (130-400); RED BLOOD CELL COUNT(AUTO) 4.06 MIL/uL (4.00-5.50); RED CELL DISTRIBUTION WIDTH 15.7 % (11.0-15.5); WHITE BLOOD COUNT (AUTO) 13.3 K/uL (4.8-10.8)
[2022-03-04 05:34] LABS: ALBUMIN 1.8 g/dL (3.5-5.0); BILIRUBIN,TOTAL 0.4 mg/dL (0.2-1.0); CREATININE 0.9 mg/dL (0.5-1.5); CRP QUANTITATIVE 130.5 mg/L (0.00-9.0); TOTAL PROTEIN, SERUM 5.6 g/dL (6.0-8.3)
[2022-03-04] MEDS: METRONIDAZOLE 500MG/100ML BAG 100 ML IVPB SCH ×3 (05:41→21:16)
[2022-03-04 05:51] LABS: POTASSIUM 2.8 mmol/L (3.5-5.1)
[2022-03-04 06:36] LABS: ERYTHROCYTE SEDIMENTATION RATE 11 MM/HR (0-30)
[2022-03-04 08:00] VITALS: BP 113/77
[2022-03-04] MEDS: LEVOTHYROXINE 125 MCG TABLET PO SCH (08:08)
[2022-03-04] MEDS: FLUCONAZOLE 200 MG/NS 100 ML 100 ML IV SCH (08:09)
[2022-03-04] MEDS: POTASSIUM CHLORIDE 20MEQ/100ML 100 ML IV PRN (08:09)
[2022-03-04] MEDS: LIDOCAINE HCL-MPF 1% 2ML VIAL IV PRN (08:10)
[2022-03-04] MEDS: APIXABAN 5 MG TABLET PO SCH ×2 (08:23→21:16)
[2022-03-04] MEDS: FAMOTIDINE 20MG VIAL IV SCH (08:23)
[2022-03-04] MEDS ORDERED: IOHEXOL 350 MG/ML 100ML INFUS..BTL IV ONE (11:25)
[2022-03-04 12:00] VITALS: BP 130/76
[2022-03-04 12:38] LABS: MAGNESIUM 1.5 mg/dL (1.80-2.40); POTASSIUM 3.4 mmol/L (3.5-5.1)
[2022-03-04] MEDS: LEVOFLOXACIN 500 MG/D5W 100 ML 100 ML IV SCH (14:57)
[2022-03-04 16:00] VITALS: BP 108/72
[2022-03-04 20:00] VITALS: BP 124/70
[2022-03-05] VITALS: BP 130/74
[2022-03-05] MEDS ORDERED: MAGNESIUM 2GM PREMIX 50ML 50 ML IV PRN (02:30)
[2022-03-05 04:00] VITALS: BP 107/67
[2022-03-05] MEDS: INSULIN HUMULIN R 100 UNIT/ML 3ML SQ SCH ×6 (04:00→21:00)
[2022-03-05 05:13] LABS: BASOPHILS % (AUTO) 0.2 % (0.0-5.0); EOSINOPHILS % (AUTO) 1.7 % (0.0-8.0); HEMATOCRIT 36.3 % (36-48); LYMPHOCYTES % (AUTO) 13.1 % (21.0-51.0); MEAN CORPUSCULAR HGB CONC 34.2 g/dL (32.0-36.0); MEAN CORPUSCULAR VOLUME 87.7 fL (79-99); MONOCYTES % (AUTO) 5.3 % (3.0-13.0); NEUTROPHILS % (AUTO) 62.2 % (40.0-77.0); PLATELET COUNT (AUTO) 451 K/uL (130-400); RED BLOOD CELL COUNT(AUTO) 4.14 MIL/uL (4.00-5.50); RED CELL DISTRIBUTION WIDTH 15.7 % (11.0-15.5)
[2022-03-05] MEDS: METRONIDAZOLE 500MG/100ML BAG 100 ML IVPB SCH ×3 (05:41→21:52)
[2022-03-05 06:05] LABS: BILIRUBIN,TOTAL 0.4 mg/dL (0.2-1.0); POTASSIUM 3.1 mmol/L (3.5-5.1); TOTAL PROTEIN, SERUM 5.8 g/dL (6.0-8.3)
[2022-03-05 08:00] VITALS: BP 108/70
[2022-03-05] MEDS: POTASSIUM CHLORIDE 20MEQ/100ML 100 ML IV PRN (08:53)
[2022-03-05] MEDS: FLUCONAZOLE 200 MG/NS 100 ML 100 ML IV SCH (08:53)
[2022-03-05] MEDS: APIXABAN 5 MG TABLET PO SCH ×2 (08:54→21:52)
[2022-03-05] MEDS: LEVOTHYROXINE 125 MCG TABLET PO SCH (08:54)
[2022-03-05] MEDS: LIDOCAINE HCL-MPF 1% 2ML VIAL IV PRN (08:54)
[2022-03-05] MEDS: FAMOTIDINE 20MG VIAL IV SCH (09:00)
[2022-03-05 11:58] VITALS: BP 109/68
[2022-03-05] MEDS: LEVOFLOXACIN 500 MG/D5W 100 ML 100 ML IV SCH (15:25)
[2022-03-05 16:00] VITALS: BP 143/61
[2022-03-05 20:00] VITALS: BP 123/70
[2022-03-05] MEDS ORDERED: KCL 20 MEQ ERTAB PO ONE (21:29)
[2022-03-05] MEDS ORDERED: POTASSIUM CHLORIDE 10% ELIXIR 20 MEQ/15 ML UDCUP PO PRN (21:30)
[2022-03-05] MEDS: KCL 20 MEQ ERTAB PO PRN ×2 (21:52→23:27)
[2022-03-06] VITALS: BP 111/70
[2022-03-06 04:00] VITALS: BP 122/73
[2022-03-06] MEDS: METRONIDAZOLE 500MG/100ML BAG 100 ML IVPB SCH (05:10)
[2022-03-06 05:34] LABS: BASOPHILS % (AUTO) 0.4 % (0.0-5.0); EOSINOPHILS % (AUTO) 1.6 % (0.0-8.0); HEMATOCRIT 34.1 % (36-48); LYMPHOCYTES % (AUTO) 12.7 % (21.0-51.0); MEAN CORPUSCULAR HEMOGLOBIN 29.7 pg (27.0-33.0); MEAN CORPUSCULAR HGB CONC 33.7 g/dL (32.0-36.0); MEAN CORPUSCULAR VOLUME 88.1 fL (79-99); MONOCYTES % (AUTO) 5.5 % (3.0-13.0); NEUTROPHILS % (AUTO) 66.7 % (40.0-77.0); PLATELET COUNT (AUTO) 444 K/uL (130-400); RED BLOOD CELL COUNT(AUTO) 3.87 MIL/uL (4.00-5.50); RED CELL DISTRIBUTION WIDTH 15.7 % (11.0-15.5); WHITE BLOOD COUNT (AUTO) 13.9 K/uL (4.8-10.8)
[2022-03-06] MEDS: INSULIN HUMULIN R 100 UNIT/ML 3ML SQ SCH ×2 (05:42→11:30)
[2022-03-06 05:56] LABS: ALBUMIN 1.9 g/dL (3.5-5.0); BILIRUBIN,TOTAL 0.3 mg/dL (0.2-1.0); MAGNESIUM 1.8 mg/dL (1.80-2.40); POTASSIUM 3.1 mmol/L (3.5-5.1); TOTAL PROTEIN, SERUM 5.3 g/dL (6.0-8.3)
[2022-03-06] MEDS: POTASSIUM CHLORIDE 20MEQ/100ML 100 ML IV PRN ×2 (06:24→11:59)
[2022-03-06] MEDS: LIDOCAINE HCL-MPF 1% 2ML VIAL IV PRN ×2 (06:24→11:48)
[2022-03-06] MEDS ORDERED: LEVO500T90 PO (08:04)
[2022-03-06] MEDS ORDERED: APIX5TAB PO (08:04)
[2022-03-06] MEDS ORDERED: METR-172 PO (08:04)
[2022-03-06] MEDS ORDERED: POTA-202 PO (08:04)
[2022-03-06 08:10] VITALS: BP 133/67
[2022-03-06] MEDS: LEVOTHYROXINE 125 MCG TABLET PO SCH (08:24)
[2022-03-06] MEDS: APIXABAN 5 MG TABLET PO SCH (08:25)
[2022-03-06] MEDS: FAMOTIDINE 20MG VIAL IV SCH (08:25)
[2022-03-06] MEDS: FLUCONAZOLE 200 MG/NS 100 ML 100 ML IV SCH (10:19)
[2022-03-06 11:42] VITALS: BP 117/62
[2022-03-09] MEDS ORDERED: APIXABAN 5 MG TABLET PO SCH (09:00)
== END 2022-03-06 16:15 | disposition home or self-care (01) | DRG 871 ==
LOC: EDH 12:23 → EDHIP 19:37 → 4BH 02-28 15:46 → 3AH 03-03 18:26
PROVIDERS: ADMIT Internal Medicine; ATTEND Internal Medicine
PROC: 0W9F30Z Drainage of Abdominal Wall with Drainage Device, Percutaneous Approach (ICD-10-PCS; principal; 2022-02-28)
DX: A41.9 Sepsis, unspecified organism (principal); K65.1 Peritoneal abscess; D65 Disseminated intravascular coagulation [defibrination syndrome]; E43 Unspecified severe protein-calorie malnutrition; I21.A1 Myocardial infarction type 2; I26.99 Other pulmonary embolism without acute cor pulmonale; K65.9 Peritonitis, unspecified; K57.20 Diverticulitis of large intestine with perforation and abscess without bleeding; N17.9 Acute kidney failure, unspecified; Z68.43 Body mass index [BMI] 50.0-59.9, adult; N39.0 Urinary tract infection, site not specified; E87.1 Hypo-osmolality and hyponatremia; I82.412 Acute embolism and thrombosis of left femoral vein; I82.432 Acute embolism and thrombosis of left popliteal vein; Z20.822 Contact with and (suspected) exposure to COVID-19; K21.9 Gastro-esophageal reflux disease without esophagitis; R53.81 Other malaise; H54.61 Unqualified visual loss, right eye, normal vision left eye; B96.20 Unspecified Escherichia coli [E. coli] as the cause of diseases classified elsewhere; E89.0 Postprocedural hypothyroidism; I10 Essential (primary) hypertension; E66.01 Morbid (severe) obesity due to excess calories; E11.9 Type 2 diabetes mellitus without complications; E87.8 Other disorders of electrolyte and fluid balance, not elsewhere classified; Z88.0 Allergy status to penicillin; Z83.3 Family history of diabetes mellitus; R65.20 Severe sepsis without septic shock; Z90.49 Acquired absence of other specified parts of digestive tract
CPT/HCPCS: 10030; 36415; 36600; 71045; 71046; 74176; 74177; 77012; 78582; 80053; 80061; 81001; 82435; 82550; 82803; 82947; 82948; 83036; 83605; 83690; 83735; 83874; 83880; 84100; 84132; 84145; 84295; 84484; 85018; 85025; 85027; 85378; 85651; 86140; 87040; 87070; 87076; 87077; 87088; 87186; 87205; 87635; 87804; 93005; 93970; 99152; 99153; 99291; A9540; A9558; C9803; G0378; J1170; J1450; J1650; J1940; J1956; J2250; J2405; J3010; J3475; J3480; J3490; J7030; J7120; Q9963; Q9967

== ENCOUNTER 2022-03-09 20:44 | Emergency (ER) | payer OTHER ==
[~2022-03-09] VITALS: Ht 170.2 cm; Wt 160.6 kg
[~2022-03-09 20:44] MED LIST changes: -ACET-2079 PO; +APIX5TAB PO; -CEFU500T67 PO; +LEVO500T90 PO; +POTA-202 PO
[2022-03-09 20:52] VITALS: BP 145/74
== END 2022-03-09 22:30 | disposition home or self-care (01) ==
LOC: EDH 20:44
DX: Z48.00 Encounter for change or removal of nonsurgical wound dressing (principal); E11.9 Type 2 diabetes mellitus without complications; Z88.0 Allergy status to penicillin; Z79.899 Other long term (current) drug therapy; Z79.01 Long term (current) use of anticoagulants; Z90.49 Acquired absence of other specified parts of digestive tract; Z98.890 Other specified postprocedural states

== ENCOUNTER → 2023-09-17 | Outpatient (CLI) | payer OTHER ==
[~2023-09-17] MED LIST changes: +LEVO-70 PO; -LEVO500T90 PO
== END | disposition home or self-care (01) ==
LOC: RAH 12:51
PROVIDERS: ATTEND Nurse Practitioner Family
DX: R60.0 Localized edema (principal)
CPT/HCPCS: 93925; 93970

== ENCOUNTER → 2024-04-26 | Outpatient (CLI) | payer OTHER ==
[~2024-04-26] MED LIST changes: +IOHEXOL 350 MG/ML 100ML INFUS..BTL IV ONE
== END | disposition home or self-care (01) ==
LOC: RAH 08:25
PROVIDERS: ATTEND Nurse Practitioner Family
DX: K57.30 Diverticulosis of large intestine without perforation or abscess without bleeding (principal); R19.02 Left upper quadrant abdominal swelling, mass and lump; Z90.49 Acquired absence of other specified parts of digestive tract
CPT/HCPCS: 74178; Q9967